=== PATIENT | male | born 1960 | race Caucasian/White ===

== ENCOUNTER 2019-12-11 14:30 | Inpatient (IN) | payer OTHER ==
[2019-12-10 20:30] VITALS: BP 160/101
[~2019-12-11] VITALS: Ht 185.4 cm; Wt 80.2 kg
[2019-12-11] MEDS ORDERED: SODIUM CHLORIDE 0.9% 2,400 ML IV ONE (15:37)
[2019-12-11] MEDS ORDERED: ONDANSETRON HCL 4 MG/2 ML VIAL IVP ONE (15:45)
[2019-12-11] MEDS ORDERED: 0.9% SODIUM CHLORIDE 10 ML SYRINGE IVP PRN ×2 (15:45→20:15)
[2019-12-11] MEDS ORDERED: ARIP2 PO (15:53)
[2019-12-11] MEDS ORDERED: ZOLP5 PO (15:53)
[2019-12-11] MEDS ORDERED: VENL25TA47 PO (15:53)
[2019-12-11] MEDS ORDERED: OMEP20CA13 PO (16:01)
[2019-12-11] MEDS ORDERED: ARIP20TA10 PO (16:01)
[2019-12-11] MEDS ORDERED: FAMO40TA7 PO (16:01)
[2019-12-11] MEDS ORDERED: GABA600T10 PO (16:01)
[2019-12-11] MEDS ORDERED: VENL-68 PO (16:01)
[2019-12-11 16:19] LABS: BASOPHILS % (AUTO) 0.3 % (0.0-2.0); EOSINOPHILS % (AUTO) 0.1 % (1.0-6.0); HEMATOCRIT 37.5 % (41-53); HEMOGLOBIN 12.5 g/dL (13.5-17.5); MEAN CORPUSCULAR HEMOGLOBIN 29.3 pg (26.0-34.0); MEAN CORPUSCULAR HGB CONC 33.4 G/dL (31.0-37.0); MEAN CORPUSCULAR VOLUME 88 fL (80-100); MONOCYTES # (AUTO) 0.7 K/uL (0.1-1.0); MONOCYTES % (AUTO) 5.6 % (2.0-9.0); NEUTROPHILS # (AUTO) 10.7 K/uL (1.8-7.7); PLATELET COUNT (AUTO) 206 K/uL (150-450); RED BLOOD CELL COUNT(AUTO) 4.27 MIL/uL (4.50-5.90); RED CELL DISTRIBUTION WIDTH 18.3 % (11.5-14.5)
[2019-12-11 16:37] LABS: PLATELET MORPHOLOGY COMMENT NORMAL
[2019-12-11 16:41] LABS: LACTIC ACID 3.5 mmol/L (0.4-2.0)
[2019-12-11 16:42] LABS: B-TYPE NATRIURETIC PEPTIDE 52 pg/mL (0-100)
[2019-12-11 16:43] LABS: ANION GAP 7 mmol/L (8-16); CALCIUM, TOTAL 8.2 mg/dL (8.8-10.5); CARBON DIOXIDE 34 mmol/L (22-29); CHLORIDE 93 mmol/L (98-107); CREATININE 0.92 mg/dL (0.60-1.30); GLOMERULAR FILTR. RATE CALC > 60 mL/min (>60); GLUCOSE,RANDOM 114 mg/dL (70-110); SODIUM SERUM 134 mmol/L (136-145); UREA NITROGEN, BLOOD 10 mg/dL (7-18)
[2019-12-11 16:44] LABS: APPEARANCE,URINE CLEAR (CLEAR); BILIRUBIN,URINE NEGATIVE (NEGATIVE); GLUCOSE, URINE (UA) 250 mg/dL (NEGATIVE); KETONES,URINE NEGATIVE (NEGATIVE); LEUKOCYTE ESTERASE ,URINE NEGATIVE (NEGATIVE); NITRATE,URINE NEGATIVE (NEGATIVE); OCCULT BLOOD,URINE TRACE (NEGATIVE); PH,URINE 6.5 (5.0-8.0); PROTEIN,URINE SEE CONFIRM (NEGATIVE); UROBILINOGEN,URINE 0.2 mg/dL (<=1.0)
[2019-12-11 16:44] LABS: PROTHROMBIN TIME 10.5 SEC (9.4-11.6)
[2019-12-11 16:48] LABS: AMPHET/METH SCREEN,URINE NEGATIVE (NEGATIVE); BARBITURATE SCREEN, URINE NEGATIVE (NEGATIVE); BENZODIAZEPINES SCREEN,URINE NEGATIVE (NEGATIVE); CANNABINOID SCREEN,URINE POSITIVE (NEGATIVE); COCAINE SCREEN,URINE NEGATIVE (NEGATIVE); METHADONE SCREEN, URINE NEGATIVE (NEGATIVE); OPIATE SCREEN,URINE NEGATIVE (NEGATIVE); PHENCYCLIDINE SCREEN,URINE NEGATIVE (NEGATIVE)
[2019-12-11 16:59] LABS: BACTERIA,URINE Few /HPF (None Seen); RBC,URINE 0-2 /HPF (0-2); SQUAMOUS EPITHELIAL CELL,UR Few /LPF (None Seen); SULFOSALICYLIC ACID,URINE 1+ (Negative)
[2019-12-11 17:05] LABS: ALANINE AMINOTRANSFERASE 44 U/L (12-78); ALKALINE PHOSPHATASE 144 U/L (46-116); ASPARTATE AMINOTRANSFERASE 39 U/L (15-37); BILIRUBIN,TOTAL 0.9 mg/dL (0.1-1.0); CREATINE KINASE, TOTAL ONLY 375 U/L (39-308); TOTAL PROTEIN, SERUM 6.5 g/dL (6.4-8.2)
[2019-12-11] MEDS ORDERED: SODIUM CHLORIDE 0.9% 100 ML ONE (17:11)
[2019-12-11] MEDS ORDERED: IOVERSOL 350 MG/ML 100 ML VIAL ONE (17:12)
[2019-12-11] MEDS ORDERED: AZITHROMYCIN 500 MG/NS 250 ML IV ONE (17:15)
[2019-12-11] MEDS ORDERED: CefTRIAXone 1 GM/DEXTROSE 50 ML IV ONE (17:15)
[2019-12-11] MEDS ORDERED: LORazepam 2 MG/ML VIAL IVP ONE (17:15)
[2019-12-11] MEDS ORDERED: POTASSIUM CHLORIDE 20 MEQ ER TABLET PO ONE (17:15)
[2019-12-11] MEDS ORDERED: OSELTAMIVIR PHOSPHATE 75 MG CAPSULE PO ONE (17:15)
[2019-12-11 17:21] LABS: INFLUENZA TYPE A NEGATIVE FOR TYPE A (NEGATIVE); INFLUENZA TYPE B NEGATIVE FOR TYPE B (NEGATIVE)
[2019-12-11 19:34] LABS: LIPASE 116 U/L (73-393)
[2019-12-11] MEDS ORDERED: ONDANSETRON HCL 4 MG/2 ML VIAL IVP PRN (20:15)
[2019-12-11] MEDS ORDERED: ACETAMINOPHEN 325 MG TABLET PO PRN (20:15)
[2019-12-11] MEDS ORDERED: MAGNESIUM SULFATE 2 GM/WATER 50 ML IV ONE (21:00)
[2019-12-11] MEDS ORDERED: SODIUM CHLORIDE 0.9% 500 ML IV ONE (21:57)
[2019-12-11 23:41] VITALS: BP 159/160
[2019-12-12] MEDS ORDERED: ONDANSETRON HCL 4 MG/2 ML VIAL IVP PRN (00:30)
[2019-12-12] MEDS ORDERED: BISACODYL 10 MG RECTAL RECTAL SUPPOSITORY PR PRN (00:30)
[2019-12-12] MEDS ORDERED: ACETAMINOPHEN 325 MG TABLET PO PRN (00:30)
[2019-12-12] MEDS ORDERED: LORazepam 2 MG/ML VIAL IVP PRN (00:30)
[2019-12-12] MEDS ORDERED: IPRATROPIUM BROMIDE 0.5 MG/2.5 ML NEB SOLUTION NEB PRN (00:30)
[2019-12-12] MEDS ORDERED: MAGNESIUM HYDROXIDE SUSPENSION 30 ML UDCUP PO PRN (00:30)
[2019-12-12] MEDS ORDERED: ZOLPIDEM TARTRATE 5 MG TABLET PO PRN (00:30)
[2019-12-12] MEDS ORDERED: ALBUTEROL SULFATE 2.5 MG/0.5 ML NEB SOLUTION NEB PRN (00:30)
[2019-12-12] MEDS: VENLAFAXINE HCL 150 MG ER CAPSULE PO SCH ×3 (00:58→20:07)
[2019-12-12] MEDS: SODIUM CHLORIDE 0.45% 1,000 ML IV SCH ×2 (00:59→16:59)
[2019-12-12] MEDS: ZOLPIDEM TARTRATE 5 MG TABLET PO PRN ×2 (00:59→22:02)
[2019-12-12] MEDS ORDERED: INFLUENZA VIRUS VACCINE QVS 2019-20 (3YR+)/PF 60 MCG/0.5 ML SYRINGE IM ONE (03:00)
[2019-12-12 05:02] VITALS: BP 155/106
[2019-12-12] MEDS: OMEPRAZOLE 20 MG CAPSULE PO SCH ×2 (05:44→17:00)
[2019-12-12] MEDS: ChlordiazePOXIDE HCL 25 MG CAPSULE PO SCH ×4 (05:44→23:41)
[2019-12-12 06:45] LABS: BASOPHILS % (AUTO) 0.3 % (0.0-2.0); EOSINOPHILS % (AUTO) 0.7 % (1.0-6.0); HEMATOCRIT 34.1 % (41-53); HEMOGLOBIN 11.7 g/dL (13.5-17.5); LYMPHOCYTES # (AUTO) 0.9 K/uL (1.0-4.8); LYMPHOCYTES % (AUTO) 10.2 % (22.0-44.0); MEAN CORPUSCULAR HEMOGLOBIN 30.5 pg (26.0-34.0); MEAN CORPUSCULAR HGB CONC 34.3 G/dL (31.0-37.0); MEAN CORPUSCULAR VOLUME 89 fL (80-100); MONOCYTES # (AUTO) 0.7 K/uL (0.1-1.0); NEUTROPHILS # (AUTO) 6.9 K/uL (1.8-7.7); NEUTROPHILS % (AUTO) 80.8 % (40.0-70.0); PLATELET COUNT (AUTO) 181 K/uL (150-450); RED BLOOD CELL COUNT(AUTO) 3.84 MIL/uL (4.50-5.90); RED CELL DISTRIBUTION WIDTH 18.8 % (11.5-14.5)
[2019-12-12 06:55] LABS: ALANINE AMINOTRANSFERASE 44 U/L (12-78); ALBUMIN 2.6 g/dL (3.4-5.0); ALKALINE PHOSPHATASE 136 U/L (46-116); ANION GAP 7 mmol/L (8-16); ASPARTATE AMINOTRANSFERASE 69 U/L (15-37); BILIRUBIN,TOTAL 1.3 mg/dL (0.1-1.0); CALCIUM, TOTAL 8.6 mg/dL (8.8-10.5); CARBON DIOXIDE 28 mmol/L (22-29); CHLORIDE 101 mmol/L (98-107); CREATININE 0.84 mg/dL (0.60-1.30); GLOMERULAR FILTR. RATE CALC > 60 mL/min (>60); GLUCOSE,RANDOM 88 mg/dL (70-110); POTASSIUM 3.1 mmol/L (3.5-5.1); SODIUM SERUM 136 mmol/L (136-145); TOTAL PROTEIN, SERUM 5.8 g/dL (6.4-8.2); UREA NITROGEN, BLOOD 8 mg/dL (7-18)
[2019-12-12 06:58] LABS: PROTHROMBIN TIME 10.1 SEC (9.4-11.6)
[2019-12-12 07:38] VITALS: BP 139/89
[2019-12-12] MEDS ORDERED: GADOBUTROL 1 MMOL/ML 10 ML VIAL IVP ONE (08:46)
[2019-12-12] MEDS: GABAPENTIN 300 MG CAPSULE PO SCH ×4 (09:00→20:07)
[2019-12-12] MEDS: DOCUSATE SODIUM 100 MG CAPSULE PO SCH ×2 (09:00→20:07)
[2019-12-12] MEDS: ARIPiprazole 10 MG TABLET PO SCH (09:37)
[2019-12-12] MEDS: MULTIVITAMINS, THERAPEUTIC TABLET PO SCH (09:38)
[2019-12-12] MEDS: FOLIC ACID 1 MG TABLET PO SCH (09:41)
[2019-12-12] MEDS: THIAMINE HCL 100 MG TABLET PO SCH (09:41)
[2019-12-12 11:19] VITALS: BP 141/79
[2019-12-12] MEDS ORDERED: POTASSIUM CHL 10 MEQ/WATER 50 ML IV PRN (14:15)
[2019-12-12 15:58] VITALS: BP 138/93
[2019-12-12] MEDS: POTASSIUM CHLORIDE 20 MEQ ER TABLET PO PRN ×2 (17:00→23:41)
[2019-12-12 19:36] VITALS: BP 146/88
[2019-12-12] MEDS: POLYMYXIN B/TRIMETHOPRIM 10 ML OPHTHALMIC SOLUTION OU SCH (20:07)
[2019-12-12] MEDS ORDERED: [UNRECOGNIZED DRUG - OTHER] PO SCH (21:00)
[2019-12-12 23:41] VITALS: BP 129/72
[2019-12-13 04:16] VITALS: BP 134/84
[2019-12-13] MEDS: ChlordiazePOXIDE HCL 25 MG CAPSULE PO SCH (06:12)
[2019-12-13] MEDS: OMEPRAZOLE 20 MG CAPSULE PO SCH (06:12)
[2019-12-13] MEDS: SODIUM CHLORIDE 0.45% 1,000 ML IV SCH (06:14)
[2019-12-13 07:32] VITALS: BP 151/94
[2019-12-13] MEDS: VENLAFAXINE HCL 150 MG ER CAPSULE PO SCH (08:23)
[2019-12-13] MEDS: THIAMINE HCL 100 MG TABLET PO SCH (08:23)
[2019-12-13] MEDS: MULTIVITAMINS, THERAPEUTIC TABLET PO SCH (08:23)
[2019-12-13] MEDS: FOLIC ACID 1 MG TABLET PO SCH (08:23)
[2019-12-13] MEDS: POLYMYXIN B/TRIMETHOPRIM 10 ML OPHTHALMIC SOLUTION OU SCH (08:25)
[2019-12-13] MEDS: GABAPENTIN 300 MG CAPSULE PO SCH (08:25)
[2019-12-13] MEDS: DOCUSATE SODIUM 100 MG CAPSULE PO SCH (08:25)
[2019-12-13] MEDS: ARIPiprazole 10 MG TABLET PO SCH (08:25)
[2019-12-13] MEDS ORDERED: LIB25 PO ×3 (11:04→11:08)
[2019-12-13] MEDS ORDERED: MULT-1203 PO (11:10)
[2019-12-13] MEDS ORDERED: FOLI1 PO (11:11)
[2019-12-13] MEDS ORDERED: THIA100T67 PO (11:11)
== END 2019-12-13 11:35 | disposition home or self-care (01) | DRG 113 ==
LOC: EMS 14:38 → 5S 18:51
PROVIDERS: ADMIT Hospitalist; ATTEND Hospitalist
DX: J11.1 Influenza due to unidentified influenza virus with other respiratory manifestations (principal); E44.1 Mild protein-calorie malnutrition; F10.10 Alcohol abuse, uncomplicated; H10.9 Unspecified conjunctivitis; Z88.6 Allergy status to analgesic agent; Z79.899 Other long term (current) drug therapy; Z68.23 Body mass index [BMI] 23.0-23.9, adult
CPT/HCPCS: 74177; 74183; 82271; 83605; 83735; 84132; 84145; 87040; 87804; 93005; A9585; G0480; J0456; J0696; J2060; J2405; J3475; J7030; J7040; J7050